=== PATIENT | male | born 1955 | race Caucasian/White ===

== ENCOUNTER → 2022-06-06 | Outpatient (CLI) | payer MEDICARE, OTHER ==
[~2022-06-06] MED LIST: ALLO300T2 PO; ASPI81TA26 PO; ATOR80TA59 PO; CYCL-707 PO; FENO160T10 PO; GLIM4TAB5 PO; GLUC1TAB58 PO; INSULANT SC; LISI10TA22 PO; METF10004 PO; NORC5TAB PO; OMEG10005 PO; SIMV20TA2 PO; SOMA350T PO; SPIR-10 PO; TORS10TA3 PO; metoprolol OR
== END ==
LOC: M LABSMTC 10:49
PROVIDERS: ATTEND Anesthesiology
DX: Z01.818 Encounter for other preprocedural examination (principal); Z11.52 Encounter for screening for COVID-19

== ENCOUNTER → 2022-08-01 | Outpatient (CLI) | payer MEDICARE, OTHER | LOC: M LABSMTC 09:13 | PROVIDERS: ATTEND Anesthesiology | DX: Z01.818 Encounter for other preprocedural examination (principal); Z20.822 Contact with and (suspected) exposure to COVID-19 ==

== ENCOUNTER 2022-08-06 06:04 | Day surgery (SDC) | payer MEDICARE, OTHER ==
[~2022-08-06] VITALS: Ht 185.4 cm; Wt 136.1 kg
[~2022-08-06 06:04] MED LIST changes: +BSS IRRIG/VANCO(10MG)/TOBRA(5MG)/EPINEPH(1:1000-0.5CC)500ML BAG-ORONLY IR ONE; +LIDOCAINE 3.5 % 1ML OPHTH TOPICAL GEL OU ONE; +OFLOXACIN 0.3 % (OCUFLOX) OPTH SOL 5ML OS ONE; +PHENYLEPHRINE 10% OPHTH SOL 5ML OS PRN
[2022-08-06] MEDS: PHENYLEPHRINE 2.5% OPHTH SOL 2ML OS SCH ×3 (06:40→06:52)
[2022-08-06] MEDS: TROPICAMIDE 1% OPHTH SOLN 15ML OS SCH ×3 (06:40→06:52)
[2022-08-06] MEDS: CYCLOPENTOLATE 1% OPHTH SOLN 2ML BTL OS SCH ×3 (06:40→06:52)
[2022-08-06] MEDS ORDERED: LIDOCAINE 1% 1ML PF SYRINGE (OR EYE CASES) As Ordered ONE (07:04)
[2022-08-06] MEDS ORDERED: MIDAZOLAM INJ 2MG/2ML VIAL (J2250 PER 1MG) As Ordered ONE (07:48)
[2022-08-06 08:06] VITALS: BP 107/62
== END 2022-08-06 08:20 | disposition home or self-care (01) ==
LOC: M SDC 06:04
PROVIDERS: ATTEND Ophthalmology
DX: H25.12 Age-related nuclear cataract, left eye (principal); I10 Essential (primary) hypertension; E11.9 Type 2 diabetes mellitus without complications; E78.5 Hyperlipidemia, unspecified; G47.33 Obstructive sleep apnea (adult) (pediatric); Z88.0 Allergy status to penicillin; Z79.82 Long term (current) use of aspirin; Z79.84 Long term (current) use of oral hypoglycemic drugs; Z79.4 Long term (current) use of insulin; Z79.899 Other long term (current) drug therapy
CPT/HCPCS: 66984; J2250; V2632

== ENCOUNTER → 2022-10-11 | Outpatient (CLI) | payer MEDICARE, OTHER ==
[~2022-10-11] MED LIST changes: -BSS IRRIG/VANCO(10MG)/TOBRA(5MG)/EPINEPH(1:1000-0.5CC)500ML BAG-ORONLY IR ONE; -LIDOCAINE 3.5 % 1ML OPHTH TOPICAL GEL OU ONE; -OFLOXACIN 0.3 % (OCUFLOX) OPTH SOL 5ML OS ONE; -PHENYLEPHRINE 10% OPHTH SOL 5ML OS PRN
== END ==
LOC: M LABSMTC 09:10
PROVIDERS: ATTEND Anesthesiology
DX: Z01.812 Encounter for preprocedural laboratory examination (principal); Z20.822 Contact with and (suspected) exposure to COVID-19

== ENCOUNTER 2022-10-15 09:02 | Day surgery (SDC) | payer MEDICARE, OTHER ==
[~2022-10-15] VITALS: Ht 185.4 cm; Wt 135.1 kg
[~2022-10-15 09:02] MED LIST changes: +BSS IRRIG/VANCO(10MG)/TOBRA(5MG)/EPINEPH(1:1000-0.5CC)500ML BAG-ORONLY IR ONE; +CYCLOPENTOLATE 1% OPHTH SOLN 2ML BTL OD SCH; +LIDOCAINE 1% SDV 5ML VIAL As Ordered ONE; +LIDOCAINE 3.5 % 1ML OPHTH TOPICAL GEL OU ONE; +MIDAZOLAM INJ 2MG/2ML VIAL As Ordered ONE; +OFLOXACIN 0.3 % (OCUFLOX) OPTH SOL 5ML OD ONE; +PHENYLEPHRINE 10% OPHTH SOL 5ML OD PRN; +PHENYLEPHRINE 2.5% OPHTH SOL 2ML OD SCH; +TROPICAMIDE 1% OPHTH SOLN 15ML OD SCH; +fentaNYL 100 MCG/2 ML INJECTION As Ordered ONE
[2022-10-15] MEDS ORDERED: POVIDONE-IODINE 5% OPHTH PREP SOL 30ML As Ordered ONE (12:49)
[2022-10-15 13:10] VITALS: BP 120/78
== END 2022-10-15 13:33 | disposition home or self-care (01) ==
LOC: M SDC 09:02
PROVIDERS: ATTEND Ophthalmology
DX: H25.11 Age-related nuclear cataract, right eye (principal); I10 Essential (primary) hypertension; E11.9 Type 2 diabetes mellitus without complications; E78.5 Hyperlipidemia, unspecified; G47.33 Obstructive sleep apnea (adult) (pediatric); Z79.84 Long term (current) use of oral hypoglycemic drugs; Z79.899 Other long term (current) drug therapy; Z79.4 Long term (current) use of insulin; Z88.0 Allergy status to penicillin
CPT/HCPCS: 66984; J2250; J3010; V2632